=== PATIENT | female | born 1980 | race Caucasian/White ===

== ENCOUNTER 2019-06-24 00:05 | Inpatient (IN) | payer MEDICAID ==
[~2019-06-24] VITALS: Ht 160 cm; Wt 62.1 kg
[2019-06-24] MEDS ORDERED: VANCOMYCIN 1 GM VIAL ONE (00:52)
[2019-06-24] MEDS ORDERED: ONDANSETRON HCL/PF 4 MG/2 ML VIAL ONE (00:52)
[2019-06-24] MEDS ORDERED: PIPERACILLIN /TAZOBACTAM 3.375 G VIAL IV ONE (00:53)
[2019-06-24] MEDS ORDERED: MORPHINE SULFATE INJ 4 MG/ML DISP.SYRIN ONE ×2 (00:53→01:07)
[2019-06-24] MEDS ORDERED: IV NS 0.9% 1,000 ML BAG IV ONE (01:00)
[2019-06-24] MEDS ORDERED: PIPERACILLIN /TAZOBACTAM 3.375 G in IV D5W 50 ML IV ONE (01:00)
[2019-06-24] MEDS ORDERED: MORPHINE SULFATE INJ 2 MG/ML DISP.SYRIN IV ONE (01:00)
[2019-06-24] MEDS ORDERED: ONDANSETRON HCL/PF 4 MG/2 ML VIAL IVP ONE (01:00)
[2019-06-24] MEDS ORDERED: VANCOMYCIN 1 GM in IV D5W 250 ML IV ONE (01:00)
[2019-06-24 01:05] LABS: EOSINOPHILS % (AUTO) 0.7 % (0.0-6.0); HEMATOCRIT 35 % (33-45); HEMOGLOBIN 11.6 g/dL (11.5-14.8); LYMPHOCYTES # (AUTO) 0.8 /CMM (0.8-4.8); LYMPHOCYTES % (AUTO) 16.3 % (20.0-44.0); MEAN CORPUSCULAR HGB CONC 33 g/dl (31.0-36.0); MEAN CORPUSCULAR VOLUME 99 fL (82-100); MONOCYTES # (AUTO) 0.6 /CMM (0.1-1.30); MONOCYTES % (AUTO) 13.5 % (2.0-12.0); NEUTROPHILS # (AUTO) 3.3 /CMM (1.8-8.9); NEUTROPHILS % (AUTO) 68.5 % (43.0-81.0); PLATELET COUNT (AUTO) 227 /CMM (150-450); RED BLOOD CELL COUNT(AUTO) 3.57 MIL/uL (4.0-5.2); WHITE BLOOD COUNT (AUTO) 4.8 K/uL (4.3-11.0)
[2019-06-24 01:14] LABS: CALCIUM, SERUM 9.3 mg/dL (8.5-10.1); CREATININE 1.1 mg/dL (0.6-1.3)
[2019-06-24 01:18] LABS: ALBUMIN 3.1 g/dL (3.4-5.0); BILIRUBIN,DIRECT 0.1 mg/dL (0.0-0.2); BILIRUBIN,TOTAL 0.4 mg/dL (0.2-1.0); TOTAL PROTEIN, SERUM 7.3 g/dL (6.4-8.2)
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
[2019-06-24] MEDS ORDERED: HYDROCODONE/APAP 5/325MG 1 EACH TABLET PO PRN (02:00)
[2019-06-24] MEDS ORDERED: MAGNESIUM HYDROXIDE 30 ML UDC PO PRN (02:00)
[2019-06-24] MEDS ORDERED: MAG HYDROX/AL HYDROX/SIMETH 30 ML UDC PO PRN (02:00)
[2019-06-24] MEDS ORDERED: MORPHINE SULFATE INJ 2 MG/ML DISP.SYRIN IV PRN (02:00)
[2019-06-24] MEDS ORDERED: ACETAMINOPHEN 325 MG TABLET PO PRN (02:00)
[2019-06-24] MEDS ORDERED: POTASSIUM CHLORIDE 20 MEQ TAB.PRT.SR PO ONE (02:00)
[2019-06-24] MEDS ORDERED: ONDANSETRON HCL/PF 4 MG/2 ML VIAL IVP PRN (02:00)
--- NOTE | 2019-06-24 02:04 | NUR ---
[facility] [phone]
--- NOTE | 2019-06-24 02:23 | NUR ---
REPORT GIVEN TO YOSVANY BURTON
[2019-06-24 02:45] VITALS: BP 192/114
--- NOTE | 2019-06-24 02:45 | NUR ---
RN MS NOTES RECEIVED PATIENT FROM ER VIA GURNEY SAFELY TRANSFERRED TO BED AMBULATED STEADY WITH STAND BY ASSIST. AWAKE ALERT AND ORIENTED TO X3, ABLE TO MAKE NEEDS KNOWN AND CARRY ON CONVERSATION, IV SITE TO LEFT AC #20 G INTACT AND PATENT, NO REDNESS, NO INFILTRATION PRESENT, NOTED LEFT SIDE FACE,CHEEK, CHIN , LIP AREA WITH REDNESS, SWELLING ,LARGE SCAB PRESENT WITH PURULENT DRAINAGE. ENCOURAGE PATIENT NOT TO TOUCH AFFECTED SITE. AT THIS TIME DENIES ANY PAIN OR DISCOMFORT STATES "NO , I HAVE NO PAIN". BELONGINGS LIST DONE, NOTED WITH AMOXICILLIN MEDICATION BOTTLE MADE AWARE WILL GIVE TO PHARMACY TO HOLD , VERBALIZES SHE UNDERSTAND RECEIPT SIGNED AND PLACED IN CHART, PATIENT DENIES HAVING OTHER OPEN AREAS IN BODY, EXCEPT RIGHT LEG SCABS AND RIGHT HAND SCAB AND FACE, PICTURES OF SITES TAKEN AND PLACED IN CHART, ORIENTED TO STAFF AND CALL LIGHT AND KEPT WITHIN REACH , SAFETY PRECAUTIONS IN PLACE, LOW BED AND LOCKED, ALL NEEDS ATTENDED WILL FOLLOW MD ORDERS AND ATTEND TO NEEDS, REMAINS COMFORTABLE AT THIS TIME.
[2019-06-24] MEDS: IV 1/2NS 1000 ML 1,000 ML IV PRN (03:12)
--- NOTE | 2019-06-24 03:30 | NUR ---
RN MS NOTES NOTIFIED MD OF BLOOD PRESSURE READINGS RANGING FROM 178/117 HR 75 LOWEST AND 205/124, HR 69. TOOK BLOOD PRESSURE MULTIPLE TIMES ALTERNATING ARMS WITH SAME RESULT. NEW ORDERS COR CATAPRES 0.2MG X1 NOW NOTED AND CARRIED OUT. AND CATAPRES 0.1MG PO Q6HR PRN FOR SBP >160. PATIENT MADE AWARE. VERBALIZES SHE UNDERSTANDS DENIES PAIN AT THIS TIME.
[2019-06-24] MEDS ORDERED: CLONIDINE HCL 0.1 MG TABLET PO ONE (04:00)
[2019-06-24 04:39] VITALS: BP 192/114
[2019-06-24 05:26] VITALS: BP 119/80
--- NOTE | 2019-06-24 06:32 | NUR ---
RN MS CLOSING NOTES CATAPRES MEDICATION ORDERED EFFECTIVE, NOTED BLOOD PRESSURE DECREASE TO NORMAL LIMITS. 119/80,71. NO ADVERSE REACTIONS, PATIENT IN BED SLEEPING BUT EASILY AROUSABLLE DENIES ANY PAIN OR DISCOMFORT AT THIS TIME, RESPIRATIONS EVEN AND UNLABORED WITH EQUAL RISE AND FALL OF CHEST, IV SITE TO LEFT AC #20 G INTACT AND PATENT, IVF RUNNING ORDERED, NO REDNESS, NO INFILTRATION, POTASSIUM REPLACEMENT GIVEN ORDERED, PATIENT REMAINS COMFORTABLE AT THIS TIME, WILL CONTINUE TO MONITOR AND ENDORSE TO NEXT SHIFT, NO CHANGE NOTED SINCE ADMITTING TO FLOOR.
[2019-06-24 06:48] LABS: ALBUMIN 2.5 g/dL (3.4-5.0); BILIRUBIN,TOTAL 0.2 mg/dL (0.2-1.0); CALCIUM, SERUM 8.3 mg/dL (8.5-10.1); MAGNESIUM 1.6 mg/dL (1.8-2.4); PHOSPHORUS 4.3 mg/dL (2.5-4.9); POTASSIUM 3.4 mmol/L (3.5-5.1)
[2019-06-24 06:55] LABS: BASOPHILS % (AUTO) 0.7 % (0.0-2.0); EOSINOPHILS % (AUTO) 1.2 % (0.0-6.0); HEMATOCRIT 31 % (33-45); HEMOGLOBIN 10.3 g/dL (11.5-14.8); LYMPHOCYTES # (AUTO) 1.1 /CMM (0.8-4.8); LYMPHOCYTES % (AUTO) 22.8 % (20.0-44.0); MEAN CORPUSCULAR HGB CONC 33 g/dl (31.0-36.0); MEAN CORPUSCULAR VOLUME 99 fL (82-100); MONOCYTES # (AUTO) 0.7 /CMM (0.1-1.30); NEUTROPHILS # (AUTO) 2.8 /CMM (1.8-8.9); NEUTROPHILS % (AUTO) 60.3 % (43.0-81.0); PLATELET COUNT (AUTO) 208 /CMM (150-450); RED BLOOD CELL COUNT(AUTO) 3.17 MIL/uL (4.0-5.2); WHITE BLOOD COUNT (AUTO) 4.6 K/uL (4.3-11.0)
[2019-06-24 07:00] LABS: THYROID STIMULATING HORMONE 4.294 uIU/mL (0.358-3.74)
[2019-06-24] MEDS ORDERED: CLINDAMYCIN 600 MG in IV D5W 50 ML IV SCH (07:30)
--- NOTE | 2019-06-24 07:30 | NUR ---
RN MS AM NOTES RECEIVED PT IN BED, AAOX3, ON ROOM AIR, NO SOB, RESPIRATION UNLABORED,DENIES ANY PAIN OR DISCOMFORT AT THIS TIME, IV SITE TO LEFT AC #20 G FLUSHES WELL, IVF RUNNING ORDERED, SITE CLEAR, AMBULATORY, REGULAR DIET. SEE NURSING FLOWSHEET FOR SKIN ISSUES. POC DISCUSSED. VERBALIZED UNDERSTANDING. PATIENT REMAINS COMFORTABLE AT THIS TIME, NEEDS ANTICIPATED, SAFETY MEASURES IN PLACE. CALL LIGHT WITHIN REACH, INSTRUCTED TO CALL FOR ASSIST. WILL CONTINUE TO MONITOR.
[2019-06-24 08:00] VITALS: BP 150/74
[2019-06-24] MEDS ORDERED: CLONIDINE HCL 0.1 MG TABLET PO PRN (08:00)
[2019-06-24] MEDS: PANTOPRAZOLE 40 MG TABLET.DR PO SCH (08:30)
[2019-06-24] MEDS ORDERED: IBUP-1955 PO (08:51)
[2019-06-24] MEDS ORDERED: AMOX1TAB16 PO (08:51)
[2019-06-24] MEDS ORDERED: CLINDAMYCIN IV RTU IN D5W 600 MG/50 ML PIGGYBACK IV SCH (09:00)
--- NOTE | 2019-06-24 09:30 | NUR ---
RN NOTES DUE MEDS GIVEN
[2019-06-24] MEDS ORDERED: POTASSIUM CHLORIDE 20 MEQ TAB.PRT.SR PO SCH (10:00)
[2019-06-24] MEDS: Magnesium 1GM/D5W 100ML PREMIX 100 ML IV SCH ×2 (10:25→11:23)
[2019-06-24] MEDS ORDERED: LIDOCAINE 1%-EPI 1:100,000 20 ML VIAL TP ONE (10:30)
[2019-06-24] MEDS ORDERED: VANCOMYCIN HCL 1.25 GM in IV D5W 260 ML IV SCH (12:30)
[2019-06-24] MEDS ORDERED: TDAP [DIPH/PERTUSSIS/TET] 0.5 ML VIAL IM ONE (12:30)
[2019-06-24] MEDS ORDERED: FEE PK DOSING 1 MIN EA MC ONE (12:47)
[2019-06-24] MEDS: PIPERACILLIN /TAZOBACTAM 3.375 G in IV D5W 50 ML IV SCH ×3 (13:02→23:29)
[2019-06-24] MEDS: VANCOMYCIN 0.75 GM in IV D5W 250 ML IV SCH ×2 (14:20→20:05)
[2019-06-24 16:00] VITALS: BP_SYST 127; BP_SYST 130; BP_DIAS 77; BP_DIAS 81
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
--- NOTE | 2019-06-24 19:15 | NUR ---
RN shayne opening notes Received Pt from morning nurse. Pt is alert and orientedX3, calm and cooperative. Pt is resting in bed comfortably. Respiration is normal. No SOB. No nausea or vomiting. Pt denies any pain or discomfort. IV sites at LAC# 20 is clean, intact, patent and flush without resistance. Pt has a steady gait. Dressing on left side of face is clean, dry and intact. Safety precautions is maintained. Bed at low position, brakes locked, side rails upX2 and call light is within reach. Will continue to monitor.
[2019-06-24 20:00] VITALS: BP 146/105
[2019-06-24] MEDS: LORAZEPAM INJ 2 MG/ML VIAL IV PRN (23:34)
--- NOTE | 2019-06-24 23:34 | NUR ---
MICHEAL bella notes Pt is feeling anxious. Administered Ativan 1 mg/0.5 ml/IV push as ordered for anxiety per Pt request. Instructed to call. Safety precautions is maintained. Will continue to monitor.
[2019-06-25] MEDS: VANCOMYCIN 0.75 GM in IV D5W 250 ML IV SCH ×3 (04:10→21:13)
[2019-06-25] MEDS: PIPERACILLIN /TAZOBACTAM 3.375 G in IV D5W 50 ML IV SCH ×4 (05:25→23:11)
[2019-06-25 06:28] LABS: BASOPHILS % (AUTO) 0.8 % (0.0-2.0); EOSINOPHILS % (AUTO) 1.4 % (0.0-6.0); HEMATOCRIT 31 % (33-45); HEMOGLOBIN 10.3 g/dL (11.5-14.8); LYMPHOCYTES # (AUTO) 1.2 /CMM (0.8-4.8); LYMPHOCYTES % (AUTO) 26.8 % (20.0-44.0); MEAN CORPUSCULAR HGB CONC 33 g/dl (31.0-36.0); MEAN CORPUSCULAR VOLUME 99 fL (82-100); MONOCYTES # (AUTO) 0.6 /CMM (0.1-1.30); MONOCYTES % (AUTO) 13.5 % (2.0-12.0); NEUTROPHILS # (AUTO) 2.6 /CMM (1.8-8.9); NEUTROPHILS % (AUTO) 57.5 % (43.0-81.0); PLATELET COUNT (AUTO) 200 /CMM (150-450); RED BLOOD CELL COUNT(AUTO) 3.13 MIL/uL (4.0-5.2); WHITE BLOOD COUNT (AUTO) 4.6 K/uL (4.3-11.0)
--- NOTE | 2019-06-25 06:49 | NUR ---
RN medsurg closing notes Pt is alert and orientedX3. Pt is resting in bed comfortably. Awaken easily. Respiration is normal. No SOB. No nausea or vomiting. Pt denies any pain or discomfort. IV sites at LAC#20 is clean, intact, patent and infusing well 0.45%NS @ 75 ml/hr. Routine meds were given as ordered including PRN meds. Kept Pt clean, dry, warm and comfortable. Instructed to call. Safety precautions is maintained. Bed at low position, brakes locked, side rails UpX2 and call light is within reach. Will endorse to morning nurse for SHELLY.
[2019-06-25 06:50] LABS: CALCIUM, SERUM 8.2 mg/dL (8.5-10.1); CREATININE 0.9 mg/dL (0.6-1.3); MAGNESIUM 1.8 mg/dL (1.8-2.4); POTASSIUM 3.6 mmol/L (3.5-5.1)
--- NOTE | 2019-06-25 07:15 | NUR ---
MS RN OPENING NOTES RECEIVED PT IN BED, ASLEEP EASILY AROUSED. A/O X3. PT TOLERATING RA, WITH NO ACUTE RESPIRATORY DISTRESS NOTED. PT DENIES ANY PAIN OR DISCOMFORT AT THIS TIME. PT ALSO DENIES ANY CONCERNS OR QUESTIONS AT THE MOMENT. IVF 1/2 NS 75ML/HR TO LAC G20, INTACT AND FLUID INFUSING WELL. PT KEPT COMFORTABLE. CALL LIGHT KEPT WITHIN REACH. PT'S BED IN LOWEST, LOCKED POSITION WITH SR X3. WILL CONTINUE PLAN OF CARE.
[2019-06-25] MEDS: PANTOPRAZOLE 40 MG TABLET.DR PO SCH (07:44)
[2019-06-25 08:00] VITALS: BP 142/101
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
[2019-06-25] MEDS: NEOMY SULF/BACITRAC ZN/POLY 15 GM TUBE TP SCH (12:13)
[2019-06-25 16:00] VITALS: BP 174/110
[2019-06-25] MEDS: IV 1/2NS 1000 ML 1,000 ML IV PRN (17:17)
--- NOTE | 2019-06-25 19:48 | NUR ---
MS RN CLOSING NOTES PT IN BED, ASLEEP EASILY AROUSED. A/O X3. PT TOLERATING RA, WITH NO ACUTE RESPIRATORY DISTRESS NOTED. PT DENIES ANY PAIN OR DISCOMFORT AT THIS TIME. IVF 1/2 NS 75ML/HR TO LAC G20, INTACT AND FLUID INFUSING WELL. PT KEPT COMFORTABLE. ALL NEEDS AND CARE ATTENDED. CALL LIGHT KEPT WITHIN REACH. PT'S BED IN LOWEST, LOCKED POSITION WITH SR X3. ENDORSED TO TRAIN GATEMAN NURSE FOR SHELLY.
--- NOTE | 2019-06-25 19:50 | NUR ---
MS RN NOTE: PATIENT RESTING IN BED, NO ACUTE DISTRESS NOTED. BREATHING EVEN AND UNLABORED, NO SOB NOTED. DRESSING TO LEFT CHEEK IN PLACE, NO BLEEDING NOTED. IV TO LAC IN PLACE. BED LOCKED AND IN LOWEST POSITION, CALL LIGHT IN REACH. WILL CONTINUE TO MONITOR.
[2019-06-25 20:00] VITALS: BP 201/121
[2019-06-25] MEDS: LORAZEPAM INJ 2 MG/ML VIAL IV PRN (22:39)
--- NOTE | 2019-06-25 22:40 | NUR ---
MS RN NOTE: PATIENT COMPLAINS OF ANXIETY, ATIVAN 1MG IV GIVEN PER MD ORDER. WILL CONTINUE TO MONITOR.
[2019-06-26] MEDS: VANCOMYCIN 0.75 GM in IV D5W 250 ML IV SCH (04:53)
[2019-06-26] MEDS: PIPERACILLIN /TAZOBACTAM 3.375 G in IV D5W 50 ML IV SCH (05:54)
--- NOTE | 2019-06-26 06:20 | NUR ---
MS RN NOTE: PATIENT RESTING IN BED, NO ACUTE DISTRESS NOTED. BREATHING EVEN AND UNLABORED, NO SOB NOTED. DRESSING TO LEFT CHEEK IN PLACE, NO BLEEDING NOTED. IV TO LAC IN PLACE. BED LOCKED AND IN LOWEST POSITION, CALL LIGHT IN REACH. WILL ENDORSE TO DAY NURSE TO CONTINUE WITH PLAN OF CARE.
[2019-06-26 07:07] LABS: BASOPHILS # (AUTO) 0.1 /CMM (0.0-0.2); BASOPHILS % (AUTO) 1.2 % (0.0-2.0); EOSINOPHILS % (AUTO) 1.3 % (0.0-6.0); HEMATOCRIT 32 % (33-45); HEMOGLOBIN 10.4 g/dL (11.5-14.8); LYMPHOCYTES # (AUTO) 1.1 /CMM (0.8-4.8); LYMPHOCYTES % (AUTO) 18.5 % (20.0-44.0); MEAN CORPUSCULAR HGB CONC 33 g/dl (31.0-36.0); MEAN CORPUSCULAR VOLUME 100 fL (82-100); MONOCYTES # (AUTO) 0.7 /CMM (0.1-1.30); NEUTROPHILS # (AUTO) 3.8 /CMM (1.8-8.9); PLATELET COUNT (AUTO) 204 /CMM (150-450); RED BLOOD CELL COUNT(AUTO) 3.21 MIL/uL (4.0-5.2); WHITE BLOOD COUNT (AUTO) 5.7 K/uL (4.3-11.0)
[2019-06-26 07:20] LABS: CALCIUM, SERUM 8.2 mg/dL (8.5-10.1); CREATININE 0.9 mg/dL (0.6-1.3); POTASSIUM 3.9 mmol/L (3.5-5.1)
[2019-06-26] MEDS: PANTOPRAZOLE 40 MG TABLET.DR PO SCH (07:52)
[2019-06-26 08:00] VITALS: BP 158/98
[2019-06-26] MEDS: NEOMY SULF/BACITRAC ZN/POLY 15 GM TUBE TP SCH (09:33)
[2019-06-26] MEDS ORDERED: CLIN300C11 PO (09:40)
--- NOTE | 2019-06-26 11:46 | NUR ---
MS STAFF COUNSELOR NOTES PT TO DISCHARGE TO HOME. PT ACCOMPANIED BY DAD VIA PRIVATE CAR. PT TOLERATING RA, WITH NO RESPIRATORY DISTRESS NOTED. PT DENIES ANY PAIN OR DISCOMFORT AT THE TIME OF DISCHARGE. WOUND TREATMENT PROVIDED, DRESSING CHANGED BEFORE LEAVING THE UNIT. REFUSED HAVE WOUNDS TO BE PHOTO TAKEN, STATING "IT DOESN'T LOOK GOOD ANYWAY" UNIT PROTOCOL EXPLAINED, PT INSISTED TO REFUSED. PRESCRIPTIONS OF ANTIBIOTIC AND ATIVAN GIVEN TO PT. ALL BELONGINGS WITH THE PT INCLUDING MED/AMOX THAT WAS SENT TO PHARMACY WHEN SHE GOT ADMITTED. PIV TO LAC REMOVED AND APPLIED DRY DRESSING. ALL NEEDS AND CARE ATTENDED. DISCHARGE INSTRUCTIONS AND INVENTORY LIST WERE REVIEWED AND SIGNED BY PT. PT LEFT THE UNIT AT 1140 WITH THE DAD. DESTINY/NICOLÁS AND /PV AWARE OF DISCHARGE.
[2019-06-26] MEDS ORDERED: LORA-259 PO (12:28)
== END 2019-06-26 11:40 | disposition home or self-care (01) | DRG 383 ==
LOC: ER 00:09 → MED 02:09
PROVIDERS: ADMIT Hospitalist; ATTEND Hospitalist
PROC: 0JB10ZZ Excision of Face Subcutaneous Tissue and Fascia, Open Approach (ICD-10-PCS; principal; 2019-06-24)
DX: L03.211 Cellulitis of face (principal); E43 Unspecified severe protein-calorie malnutrition; E87.6 Hypokalemia; Z90.712 Acquired absence of cervix with remaining uterus; F41.9 Anxiety disorder, unspecified; F17.210 Nicotine dependence, cigarettes, uncomplicated; S00.81XA Abrasion of other part of head, initial encounter; Z85.41 Personal history of malignant neoplasm of cervix uteri; Z68.24 Body mass index [BMI] 24.0-24.9, adult; X58.XXXA Exposure to other specified factors, initial encounter; Y93.9 Activity, unspecified; Y92.009 Unspecified place in unspecified non-institutional (private) residence as the place of occurrence of the external cause; Z71.6 Tobacco abuse counseling
CPT/HCPCS: 36415; 80048-TC; 80053-TC; 80061-TC; 80076-TC; 80202-TC; 83735-TC; 84100-TC; 84439-TC; 84443-TC; 84703-TC; 85025-TC; 87040-TC; 87070-TC; 87081-TC; 90715; G0378; J2060; J2270; J2405; J2543; J3370; J3475; J3490; J7030; J7060

== ENCOUNTER 2022-09-17 12:52 | Emergency (ER) | payer MEDICAID, OTHER ==
[~2022-09-17] VITALS: Ht 160 cm; Wt 56.7 kg
[~2022-09-17 12:52] MED LIST: CLIN300C12 PO; LORA-259 PO
[2022-09-17 13:00] VITALS: BP 196/121
[2022-09-17] MEDS ORDERED: TDAP [DIPH/PERTUSSIS/TET] 0.5 ML VIAL IM ONE ×2 (13:00→13:05)
[2022-09-17] MEDS ORDERED: BACI/NEOM/POLY B OINT PKT 1 UDPKT PACKET TP ONE (13:00)
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
--- NOTE | 2022-09-17 13:20 | NUR ---
Patient discharged to home in stable condition. Written and verbal after care instructions given. Patient verbalizes understanding of instruction.
== END 2022-09-17 13:20 | disposition home or self-care (01) ==
LOC: ER 13:04
DX: S00.83XA Contusion of other part of head, initial encounter (principal); Z98.890 Other specified postprocedural states; F17.200 Nicotine dependence, unspecified, uncomplicated; Z79.899 Other long term (current) drug therapy; Y08.89XA Assault by other specified means, initial encounter; Y93.89 Activity, other specified; Y92.89 Other specified places as the place of occurrence of the external cause; Y99.8 Other external cause status
CPT/HCPCS: 90715